=== PATIENT | male | born 1955 | race Caucasian/White ===

== ENCOUNTER 2019-07-25 07:09 | Day surgery (SDC) | payer MEDICAID ==
[2019-07-25] MEDS ORDERED: Bupivacaine 0.5% 30 ML SDV ONE (07:14)
[2019-07-25] MEDS ORDERED: Lactated Ringers 1,000 ML IV SCH (07:45)
[2019-07-25] MEDS ORDERED: Nozin Nasal Sanitizer NASBOTH ONE (08:00)
[2019-07-25] MEDS ORDERED: ceFAZolin 1 GM in Premix Bag 1 BAG IV ONE (08:30)
[2019-07-25] MEDS ORDERED: fentaNYL 100 MCG/2 ML SDV ONE ×2 (10:33→11:17)
[2019-07-25] MEDS ORDERED: Propofol 200 MG/20 ML SDV ONE (10:34)
[2019-07-25] MEDS ORDERED: Midazolam 1 MG/ML 2 ML SDV ONE (10:34)
[2019-07-25] MEDS ORDERED: Dexamethasone 4 MG/ML SDV ONE (10:35)
[2019-07-25] MEDS ORDERED: Ondansetron 4 MG/2 ML SDV ONE (10:35)
[2019-07-25] MEDS ORDERED: Acetaminophen/HYDROcodone 325-5 MG Tab PO PRN (12:42)
--- NOTE | 2019-08-08 18:30 | OR ---
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 POSTOPERATIVE DIAGNOSES: 1. Degenerative medial meniscus tear. 2. 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 PROCEDURES: Arthroscopy of right knee with chondroplasty of patellofemoral joint, medial femoral condyle, lateral femoral condyle, and partial medial meniscectomy. ANESTHESIA: General. INDICATIONS: Deuce is a 63-year-old gentleman with a history of persistent pain in the right knee for the past several weeks. He has failed conservative treatment. Examination and imaging are consistent with chondromalacia and degenerative changes in the knee. He still has adequate joint spaces on x-ray and is therefore taken to the operating room for chondroplasty and debridement. Risks, benefits, and potential complications of the procedure were discussed. DESCRIPTION OF PROCEDURE: After adequate anesthesia was obtained, the patient was placed supine with a tourniquet about the upper thigh. Right leg was then prepped and draped in a sterile fashion. Leg was exsanguinated and tourniquet inflated to 300 mmHg pressure. Standard inferior, medial and lateral portals were established. Scope was introduced and patellofemoral joint was inspected. This revealed grade 2 and predominantly grade 3 changes throughout the trochlea and portions of the patella. No full-thickness cartilage loss was present. Loose fragments were present throughout the area of chondromalacia. Medial compartment revealed significant degenerative change much more advanced than the plain x- rays indicated. This showed grade 3 and 4 changes in the medial femoral condyle with loose articular cartilage flaps. A complex tear of the medial meniscus was also present consisting primarily of a radial tear with horizontal cleavage component of the flaps. Using a combination of a punch and arthroscopic shaver, a partial medial meniscectomy was performed debriding this back to stable margins. Chondroplasty was then performed over the medial femoral condyle, removing all loose articular flaps. This did result in some areas of nearly complete articular cartilage loss being evident with the worst area directly overlying the meniscus tear. All loose fragments were debrided. Intercondylar notch revealed intact ACL and PCL with some mild synovitis. Lateral compartment revealed chondromalacia of the lateral femoral condyle, predominantly grade 3, again with articular cartilage flaps without complete eburnation of the bone. Meniscus showed mild degenerative changes without ricardo tear. Shaver was used to debride the condyle, removing the loose articular flaps. Attention was then returned to the patellofemoral joint, where chondroplasty was performed of both the trochlea and the posterior aspect of the patella, removing the loose articular pieces and bevelling these edges as much as possible. All loose fragments were removed. The knee was drained. Scope was withdrawn. Port sites were closed in a standard fashion, infiltrated with Marcaine and a sterile dressing was applied. The patient tolerated the procedure well. There were no complications. He was taken from the operating room in stable condition. Adarsh Mock MD /[id number] MTDD
== END 2019-07-25 13:47 | disposition home or self-care (01) ==
LOC: JP.SDS 07:09
PROVIDERS: ATTEND Specialist
DX: M23.331 Other meniscus derangements, other medial meniscus, right knee (principal); M22.41 Chondromalacia patellae, right knee; I10 Essential (primary) hypertension
CPT/HCPCS: 29881; 36415; 80053; 85027; A9270; J0690; J1100; J2250; J2405; J2704; J3010; J3490; J7120

== ENCOUNTER 2022-11-22 07:39 | Day surgery (SDC) | payer MEDICARE, BC ==
[~2022-11-22 07:39] MED LIST: Bupivacaine 0.5% 50 ML MDV ONE; Lactated Ringers 1,000 ML IV SCH; ceFAZolin 2 GM in Premix Bag 1 BAG IV ONE
[2022-11-22 08:05] LABS: HEMATOCRIT 46.9 % (38.4-49.7); HEMOGLOBIN 15.9 g/dL (12.9-16.9); MEAN CORPUSCULAR HEMOGLOBIN 30.5 pg (31.6-35.5); MEAN CORPUSCULAR HGB CONC 33.9 g/dL (31.6-35.5); RED BLOOD CELL COUNT 5.21 M/uL (4.14-5.76); WHITE BLOOD CELL COUNT,WBC 6.6 K/uL (3.2-11.0)
[2022-11-22] MEDS ORDERED: fentaNYL 100 MCG/2 ML SDV ONE (08:24)
[2022-11-22] MEDS ORDERED: Propofol 200 MG/20 ML SDV ONE ×2 (08:24→10:05)
[2022-11-22] MEDS ORDERED: Midazolam 1 MG/ML 2 ML SDV ONE ×2 (08:24→10:10)
[2022-11-22 08:27] LABS: A/G RATIO 1.1 (1.2-2.2); ALANINE AMINOTRANSFERASE,ALT 41 U/L (12-78); ALKALINE PHOSPHATASE 68 U/L (46-116); ANION GAP 8.7 mmol/L (5.0-14.0); ASPARTATE AMNIOTRANSFERASE,AST 20 U/L (15-37); BILIRUBIN TOTAL 0.8 mg/dL (0.2-1.0); BLOOD UREA NITROGEN,BUN 19 mg/dL (7-18); CALCIUM 8.9 mg/dL (8.5-10.1); CARBON DIOXIDE,CO2 29 mmol/L (21-32); CHLORIDE,CL 102 mmol/L (100-108); ESTIMATED GFR 84 mL/min (>60); GLUCOSE RANDOM 140 mg/dL (74-106); POTASSIUM,K 4.1 mmol/L (3.6-5.2); PROTEIN TOTAL,TP 7.8 g/dL (6.4-8.2); SODIUM,NA 140 mmol/L (140-148)
[2022-11-22] MEDS: Nozin Nasal Sanitizer NASBOTH SCH ×2 (09:00→21:57)
[2022-11-22] MEDS ORDERED: Ondansetron 4 MG/2 ML SDV IVPUSH PRN (09:36)
[2022-11-22] MEDS ORDERED: Magnesium Hydroxide 400 MG/5 ML Susp 30 ML Cup PO PRN (09:36)
[2022-11-22] MEDS ORDERED: Docusate Sodium 100 MG Cap PO PRN (09:36)
[2022-11-22] MEDS ORDERED: ceFAZolin 2 GM in Sodium Chloride 0.9% 100 ML IV SCH (09:45)
[2022-11-22] MEDS ORDERED: Bupivacaine 0.5% 30 ML SDV ONE (10:06)
[2022-11-22] MEDS: Tranexamic Acid 1,000 MG in Sodium Chloride 0.9% 50 ML IV ONE ×2 (10:30→16:06)
[2022-11-22] MEDS: Sodium Chloride 0.9% 1,000 ML IV SCH ×2 (12:25→21:02)
[2022-11-22] MEDS: oxyCODONE 5 MG Tab PO PRN ×3 (14:51→21:59)
[2022-11-22] MEDS: Morphine 2 MG/ML SYRINGE IVPUSH PRN ×2 (15:55→18:17)
[2022-11-22] MEDS: Acetaminophen 325 MG Tab PO SCH ×2 (15:59→21:59)
[2022-11-22] MEDS ORDERED: Ketorolac 30 MG/ML SDV IVPUSH ONE (17:30)
[2022-11-22] MEDS: ceFAZolin 2 GM in Premix Bag 1 BAG IV SCH (17:35)
[2022-11-22] MEDS ORDERED: HYDROmorphone 2 MG Tab PO PRN (19:11)
[2022-11-22] MEDS ORDERED: Clobetasol 0.05% Crm 30 GM Tube TOP PRN (21:00)
[2022-11-22] MEDS ORDERED: Nozin Nasal Sanitizer NASBOTH SCH (21:00)
[2022-11-23] MEDS: ceFAZolin 2 GM in Premix Bag 1 BAG IV SCH ×2 (02:40→08:44)
[2022-11-23] MEDS: Acetaminophen 325 MG Tab PO SCH ×3 (04:08→15:23)
[2022-11-23] MEDS: oxyCODONE 5 MG Tab PO PRN ×3 (04:10→15:22)
[2022-11-23] MEDS: Nozin Nasal Sanitizer NASBOTH SCH (08:44)
[2022-11-23] MEDS ORDERED: Losartan 50 MG Tab PO SCH (09:00)
[2022-11-23] MEDS ORDERED: amLODIPine 5 MG Tab PO SCH (09:00)
[2022-11-23] MEDS ORDERED: Multivitamins with Iron/Calcium/Folic Acid/Minerals Tab PO SCH (09:00)
[2022-11-23] MEDS ORDERED: Non-Formulary Medication 1 Each (Multivitamin [Multivitamin] 1 EACH Tablet) PO SCH (09:00)
[2022-11-23] MEDS ORDERED: Aspirin 325 MG Tab.EC PO SCH (09:00)
[2022-11-23] MEDS ORDERED: Non-Formulary Medication 1 Each (Losartan [Cozaar] 100 MG Tablet) PO SCH (09:00)
== END 2022-11-23 16:45 | disposition home or self-care (01) ==
LOC: JP.SDS 07:39 → JP.MS 09:36 → JP.SDS 11-23 16:45
PROVIDERS: ATTEND Specialist
DX: M17.12 Unilateral primary osteoarthritis, left knee (principal); I10 Essential (primary) hypertension; E78.00 Pure hypercholesterolemia, unspecified; Z79.82 Long term (current) use of aspirin; Z79.899 Other long term (current) drug therapy; Z88.8 Allergy status to other drugs, medicaments and biological substances
CPT/HCPCS: 27447; 36415; 73560; 80053; 85027; 97110; 97116; 97161; 97530; A9270; C1713; C1776; J0690; J1885; J2250; J2270; J2704; J3010; J3490; J7030; J7120

== ENCOUNTER 2023-12-07 09:09 | Inpatient (IN) | payer MEDICARE, BC ==
[2023-12-07 09:37] LABS: HEMATOCRIT 43.6 % (38.4-49.7); HEMOGLOBIN 15.4 g/dL (12.9-16.9); MEAN CORPUSCULAR HEMOGLOBIN 30.8 pg (31.6-35.5); MEAN CORPUSCULAR HGB CONC 35.3 g/dL (31.6-35.5); MEAN CORPUSCULAR VOLUME 87.2 fL (81.4-99.0); WHITE BLOOD CELL COUNT,WBC 6.1 K/uL (3.2-11.0)
[2023-12-07] MEDS: Nozin Nasal Sanitizer NASBOTH SCH ×2 (09:55→21:22)
[2023-12-07 09:59] LABS: ALANINE AMINOTRANSFERASE,ALT 37 U/L (12-78); ALBUMIN 3.8 g/dL (3.4-5.0); ALKALINE PHOSPHATASE 73 U/L (46-116); ANION GAP 8.7 mmol/L (5.0-14.0); ASPARTATE AMNIOTRANSFERASE,AST 17 U/L (15-37); BILIRUBIN TOTAL 0.7 mg/dL (0.2-1.0); BLOOD UREA NITROGEN,BUN 17 mg/dL (7-18); CALCIUM 9.2 mg/dL (8.5-10.1); CARBON DIOXIDE,CO2 28 mmol/L (21-32); CHLORIDE,CL 104 mmol/L (100-108); CREATININE 1.1 mg/dL (0.8-1.3); EST CRCL DRUG DOSING (CG) 71.53 mL/min; ESTIMATED GFR 74 mL/min (>60); GLUCOSE RANDOM 156 mg/dL (74-106); PROTEIN TOTAL,TP 7.6 g/dL (6.4-8.2); SODIUM,NA 141 mmol/L (140-148)
[2023-12-07] MEDS ORDERED: Ondansetron 4 MG/2 ML SDV IVPUSH PRN (10:13)
[2023-12-07] MEDS ORDERED: Magnesium Hydroxide 400 MG/5 ML Susp 30 ML Cup PO PRN (10:13)
[2023-12-07] MEDS ORDERED: Docusate Sodium 100 MG Cap PO PRN (10:13)
[2023-12-07] MEDS ORDERED: Morphine 2 MG/ML SYRINGE IVPUSH PRN (10:13)
[2023-12-07] MEDS: Lactated Ringers 1,000 ML IV SCH (10:14)
[2023-12-07] MEDS ORDERED: oxyCODONE 5 MG Tab PO PRN (10:14)
[2023-12-07] MEDS ORDERED: Midazolam 1 MG/ML 2 ML SDV ONE (10:32)
[2023-12-07] MEDS ORDERED: fentaNYL 100 MCG/2 ML SDV ONE (10:32)
[2023-12-07] MEDS ORDERED: Propofol 200 MG/20 ML SDV ONE ×3 (10:32→13:51)
[2023-12-07] MEDS ORDERED: Lactated Ringers 1,000 ML ONE (12:58)
[2023-12-07] MEDS: ceFAZolin 2 GM in Premix Bag 1 BAG IV ONE (13:15)
[2023-12-07] MEDS: Tranexamic Acid 1,000 MG in Sodium Chloride 0.9% 50 ML IV ONE (13:19)
[2023-12-07] MEDS: Bupivacaine 0.5% 50 ML MDV ONE (13:28)
[2023-12-07] MEDS ORDERED: Ketorolac 30 MG/ML SDV ONE (14:16)
[2023-12-07] MEDS: Sodium Chloride 0.9% 1,000 ML IV SCH (15:41)
[2023-12-07] MEDS: Acetaminophen 325 MG Tab PO SCH (16:16)
[2023-12-07] MEDS: oxyCODONE 5 MG Tab PO PRN (16:16)
[2023-12-07] MEDS: Ketorolac 15 MG/ML SDV IVPUSH PRN (18:08)
[2023-12-07] MEDS: ceFAZolin 2 GM in Premix Bag 1 BAG IV SCH (19:32)
[2023-12-08] MEDS: Aspirin 325 MG Tab.EC PO SCH (08:22)
[2023-12-08] MEDS: Losartan 50 MG Tab PO SCH (08:22)
[2023-12-08] MEDS: amLODIPine 5 MG Tab PO SCH (08:23)
[2023-12-08] MEDS ORDERED: oxyCODONE 5 MG Tab PO PRN (19:41)
[2023-12-08] MEDS: oxyCODONE 5 MG Tab PO PRN (22:58)
== END 2023-12-09 13:02 | disposition home or self-care (01) | DRG 470 ==
LOC: JP.SDS 09:09 → JP.MS 10:13 → JP.SDS 12-08 08:55 → JP.MS 12-08 08:55
PROVIDERS: ADMIT Specialist; ATTEND Specialist
PROC: 0SRC069 Replacement of Right Knee Joint with Oxidized Zirconium on Polyethylene Synthetic Substitute, Cemented, Open Approach (ICD-10-PCS; principal; 2023-12-07 10:15)
DX: M17.11 Unilateral primary osteoarthritis, right knee (principal); I10 Essential (primary) hypertension; Z79.899 Other long term (current) drug therapy
CPT/HCPCS: 01402-QZ; 36415; 73560-26-RT; 73560-RT; 80053; 85027; 97110-GP; 97116-GP; 97161-GP; A9270-GY; C1713; C1776; J0665; J0690; J1885; J2250; J2704; J3010; J3490; J7030; J7120

== ENCOUNTER 2025-02-27 08:46 | Day surgery (SDC) | payer MEDICARE, BC ==
[~2025-02-27 08:46] MED LIST changes: -Bupivacaine 0.5% 50 ML MDV ONE; -Lactated Ringers 1,000 ML IV SCH; +Midazolam 1 MG/ML 2 ML SDV ONE; +Propofol 200 MG/20 ML SDV ONE; -ceFAZolin 2 GM in Premix Bag 1 BAG IV ONE; +fentaNYL 100 MCG/2 ML SDV ONE
[2025-02-27] MEDS: Lactated Ringers 1,000 ML IV SCH (09:40)
[2025-02-27] MEDS: Nozin Nasal Sanitizer NASBOTH ONE (09:41)
[2025-02-27 10:03] LABS: PLATELET COUNT,PLT 210.0 K/uL (130-375); RED BLOOD CELL COUNT 5.44 M/uL (4.14-5.76); WHITE BLOOD CELL COUNT,WBC 7.0 K/uL (3.2-11.0)
[2025-02-27] MEDS ORDERED: Succinylcholine 200 MG/10 ML MDV ONE (11:16)
[2025-02-27] MEDS ORDERED: Glycopyrrolate 0.2 MG/ML 5 ML MDV ONE (11:30)
[2025-02-27] MEDS ORDERED: Dexamethasone 4 MG/ML SDV ONE (11:51)
[2025-02-27] MEDS ORDERED: Ondansetron 4 MG/2 ML SDV ONE (11:51)
[2025-02-27] MEDS ORDERED: fentaNYL 100 MCG/2 ML SDV ONE (12:02)
== END 2025-02-27 15:40 | disposition home or self-care (01) ==
LOC: JP.SDS 08:46
PROVIDERS: ATTEND Specialist
DX: M75.121 Complete rotator cuff tear or rupture of right shoulder, not specified as traumatic (principal); M75.41 Impingement syndrome of right shoulder; S46.211A Strain of muscle, fascia and tendon of other parts of biceps, right arm, initial encounter; I10 Essential (primary) hypertension; E11.9 Type 2 diabetes mellitus without complications; Z79.84 Long term (current) use of oral hypoglycemic drugs; Z79.899 Other long term (current) drug therapy
CPT/HCPCS: 36415; 85027; A9270-GY; C1713; J0330; J0665; J0690; J1100; J1596; J2250; J2405; J2704; J2710; J3010; J3490; J7120